=== PATIENT | female | born 1955 | race Caucasian/White ===

== ENCOUNTER 2018-01-12 11:24 | Emergency (ER) | payer MEDICARE, OTHER ==
[2018-01-12] MEDS: SOD CHLORIDE 0.9% 1,000 ML IV (14:17)
[2018-01-12 14:19] LABS: ADD MAN DIFF? NO
[2018-01-12 14:23] LABS: BASOPHILS % 0.4 % (0.0-2.0); EOSINOPHILS # 0.3 10^3/ul (0.0-0.5); EOSINOPHILS % 3.3 % (0.0-7.0); LYMPHOCYTES # 2.7 10^3/ul (0.8-2.9); LYMPHOCYTES % 25.9 % (15.0-51.0); MEAN CORPUSCULAR HEMOGLOBIN 28.3 pg (29.0-33.0); MEAN CORPUSCULAR HGB CONC 31.7 g/dl (32.0-37.0); MEAN CORPUSCULAR VOLUME 89.1 fl (82.0-101.0); MEAN PLATELET VOLUME 11.4 fl (7.4-10.4); MONOCYTE # 0.6 10^3/ul (0.3-0.9); MONOCYTES % 6.2 % (0.0-11.0); NEUTROPHIL # 6.5 10^3/ul (1.6-7.5); NEUTROPHILS % 63.8 % (39.0-77.0); PLATELET COUNT 198 10^3/UL (140-415); RED CELL DISTRIBUTION WIDTH 14.4 % (11.5-14.5)
[2018-01-12 14:23] LABS: WHITE BLOOD COUNT 10.2 10^3/ul (4.8-10.8)
[2018-01-12 14:45] LABS: ALANINE AMINOTRANSFERASE 35 IU/L (13-69); ALBUMIN 4.2 g/dl (3.3-4.9); ALKALINE PHOSPHATASE 95 IU/L (42-121); ANION GAP 17 (8-16); ASPARTATE AMINO TRANSFERASE 33 IU/L (15-46); BILIRUBIN,INDIRECT 0.3 mg/dl (0-1.1); BILIRUBIN,TOTAL 0.3 mg/dl (0.2-1.3); BLOOD UREA NITROGEN 21 mg/dl (7-20); CALCIUM 9.5 mg/dl (8.4-10.2); CARBON DIOXIDE 23 mmol/L (21-31); CHLORIDE 109 mmol/L (97-110); CREATININE 0.68 mg/dl (0.44-1.00); GLUCOSE 126 mg/dl (70-220); POTASSIUM 4.6 mmol/L (3.5-5.1); SODIUM 144 mmol/L (135-144); TOTAL PROTEIN 7.7 g/dl (6.1-8.1)
[2018-01-12 14:51] LABS: VALPROATE 22 ug/ml (50-100)
[2018-01-12 14:56] LABS: TROPONIN-I < 0.010 ng/ml (0.000-0.120)
[2018-01-12 15:50] LABS: ADD UMIC YES; UR ASCORBIC ACID NEGATIVE (NEGATIVE); UR BACTERIA FEW /HPF (NONE SEEN); UR BILIRUBIN (Dip) NEGATIVE (NEGATIVE); UR BLOOD (Dip) 2+ mg/dL (NEGATIVE); UR CLARITY SLIGHTLY CLOUDY (CLEAR); UR COLOR YELLOW (YELLOW); UR GLUCOSE (Dip) NEGATIVE (NEGATIVE); UR KETONES (Dip) NEGATIVE (NEGATIVE); UR LEUKOCYTE ESTERASE (Dip) NEGATIVE Leu/ul (NEGATIVE); UR NITRITE (Dip) NEGATIVE (NEGATIVE); UR RBC 5 /HPF (0-5); UR SQUAMOUS EPITHELIAL CELL FEW /HPF (FEW); UR TOTAL PROTEIN (Dip) NEGATIVE (NEGATIVE); UR UROBILINOGEN (Dip) NEGATIVE (NEGATIVE); UR WBC 1 /HPF (0-5)
== END 2018-01-12 17:00 | disposition home or self-care (01) ==
LOC: FTE 11:24
DX: R42 Dizziness and giddiness (principal)
CPT/HCPCS: 70450; 71045; 80053; 80164; 81001; 84484; 85025; 93005; 96360; 99285-25